=== PATIENT | male | born 1955 | race Caucasian/White ===

== ENCOUNTER 2017-07-03 10:19 | Emergency (ER) | payer OTHER ==
[~2017-07-03 10:19] MED LIST: Z.0.NO CURRENT MEDS
[2017-07-03 10:21] VITALS: BP 172/103; PULSE 104; RESP 20; TEMP 98.1; O2SAT 98
[2017-07-03] MEDS ORDERED: TETANUS/DIPHTHERIA TOXOID ADULT 0.5 ML VIAL IM ONE (11:00)
[2017-07-03] MEDS ORDERED: CEPH-460 PO (11:00)
--- NOTE | 2017-07-03 11:00 | PD ---
HPI Chief Complaint: Laceration/Skin Injury Time Seen by Provider: 10:28 Travel History International Travel<30 days: No Contact w/Intl Traveler<30days: No Traveled to known affect area: No History of Present Illness HPI 61-year-old male resents to the emergency department for evaluation a laceration to the distal aspect of the left fifth digit. Patient was cutting tile when he sliced the tip of his finger. It is rather superficial in nature however he cannot get it to stop bleeding. There is no pain or alterations in sensation associated with it. He also is not up-to-date on his tetanus vaccination. PFSH Past Medical History Cancer: Yes (BCC) Diabetes: Yes Glaucoma: No Hepatitis: No Hiatal Hernia: No Hypertension: Yes Thyroid Disease: No Past Surgical History Pacemaker: No Social History Alcohol Use: Yes (OCC) Tobacco Use: No Allergies-Medications (Allergen,Severity, Reaction): Coded Allergies: No Known Allergies (Verified , 04/04/10) Reported Meds & Prescriptions Reported Meds & Active Scripts Active Keflex (Cephalexin) 500 Mg Cap 500 Mg PO Q6H 5 Days Reported No Current Meds (Miscellaneous Medication) Misc Review of Systems Except as stated in HPI: all other systems reviewed are Neg Physical Exam Narrative GENERAL: Well-nourished, well-developed male patient in no acute distress. SKIN: Focused skin assessment warm/dry. 1 cm curvilinear laceration lash skin flap to the distal aspect of the left fifth digit. Actively bleeding. HEAD: Normocephalic. EYES: No scleral icterus. No injection or drainage. NECK: Supple, trachea midline. No JVD or lymphadenopathy. CARDIOVASCULAR: Regular rate and rhythm without murmurs, gallops, or rubs. RESPIRATORY: Breath sounds equal bilaterally. No accessory muscle use. MUSCULOSKELETAL: No cyanosis, or edema. Patient can fully flex and extend the affected digit. Sensation intact distal affected digit. Cap refill is within normal limits. BACK: Nontender without obvious deformity. No CVA tenderness. Data Data Last Documented VS Vital Signs Date Time Temp Pulse Resp B/P (MAP) Pulse Ox O2 Delivery O2 Flow Rate FiO2 07/03/17 11:13 07/03/17 10:55 16 07/03/17 10:21 98.1 104 98 Orders Orders Tetanus/Diphtheria Tox Adult (Tetanus/Di (07/03/17 11:00) Ed Discharge Order (07/03/17 11:00) [facility] Medical Decision Making Medical Screen Exam Complete: Yes Emergency Medical Condition: Yes Medical Record Reviewed: Yes Differential Diagnosis Laceration superficial versus deep versus abrasion versus avulsion Narrative Course 61-year-old male presents to emergency department for evaluation of a laceration to the left fifth digit. This is superficial in nature, however it is persistently bleeding. It is cleansed and approximated. Bleeding is controlled. Patient is updated on his tetanus vaccination. He is counseled on care and agrees to return immediately with any acute worsening of symptoms. Procedures Procedure Narrative LACERATION LOCATION: Left fifth digit LENGTH: 1 cm NUMBER OF STITCHES/SHELIA: 2 sutures REPAIR: The area of the laceration was prepped with Betadine and sterilely draped. The laceration was infiltrated with 2% lidocaine. The wound was copiously irrigated and explored without evidence of foreign body, tendon injury or neurovascular injury. The wound was closed using 4-0 Prolene. This was a single layer repair. A sterile dressing was applied. The patient was advised to keep the dressing clean and dry. Patient tolerated the procedure well. Diagnosis Primary Impression: Finger laceration Qualified Codes: S61.217A - Laceration without foreign body of left little finger without damage to nail, initial encounter Referrals: Primary Care Physician Patient Instructions: Finger Laceration (ED), General Instructions Additional Instructions: Keep the area clean Make sure it is completely dry before applying a dressing Elevate to reduce pain Sutures are to be removed in 7-10 days; this can be done in the ED or at your primary care providers office Return to ED with acute worsening of symptoms Med/Other Pt SpecificInfo: Prescription(s) given Scripts Cephalexin (Keflex) 500 Mg Cap 500 MG PO Q6H for Infection for 5 Days, #20 CAP 0 Refills Prov: Yamel Covington 07/03/17 Disposition: 01 DISCHARGE HOME Condition: Stable Yamel Covington Jul 03, 2017 11:00
== END 2017-07-03 11:24 | disposition home or self-care (01) ==
LOC: NEPD 10:19
DX: S61.217A Laceration without foreign body of left little finger without damage to nail, initial encounter (principal); W26.9XXA Contact with unspecified sharp object(s), initial encounter; E11.9 Type 2 diabetes mellitus without complications; I10 Essential (primary) hypertension; Z85.828 Personal history of other malignant neoplasm of skin; Z23 Encounter for immunization
CPT/HCPCS: 12001; 90471; 90714